=== PATIENT | male | born 1980 | race Caucasian/White ===

== ENCOUNTER 2017-10-03 09:46 | Emergency (ER) | payer BC ==
[~2017-10-03] VITALS: Wt 90.7 kg
[2017-10-03] MEDS ORDERED: LAMOTRIGINE150 MG PO (09:56)
[2017-10-03] MEDS ORDERED: PREDNISONE10 MG PO (10:23)
[2017-10-03] MEDS ORDERED: 'PARAFON FORTE500 M1 PO (10:23)
== END 2017-10-03 12:10 | disposition home or self-care (01) ==
LOC: ED 09:46
DX: M54.5 Low back pain (principal); R03.0 Elevated blood-pressure reading, without diagnosis of hypertension; Z79.899 Other long term (current) drug therapy

== ENCOUNTER 2018-12-26 14:25 | Emergency (ER) | payer OTHER ==
[~2018-12-26] VITALS: Wt 81.6 kg
--- NOTE | ~2018-12-26 | EKG ---
[place], [place] ELECTROCARDIOGRAM REPORT NAME: JERED JIANG UNIT #: [id number] ROOM: DOCTOR: EPIPHANY DRAFT REPORT BIRTHDATE: [birth year] [facility] Test Date: 2018-12-26 Test Time: 17:15:33 Pat Name: JERED JIANG Department: ED Room: 3 Gender: M Supervisor Nuclear Medicine: Marixa Rodarte : 1980 Requested By: KELLY ETIENNE Order Number: [id number] Reading MD: Nick Banerjee MD Measurements Intervals [place] Rate: 55 P: 27 [place]: 153 QRS: 6 QRSD: 98 T: 18 QT: 415 QTc: 397 Interpretive Statements Sinus rhythm Probable left atrial enlargement Electronically Signed On 12-28-2018 7:14:22 PDT by Nick Banerjee MD CM:EKGRPT:ELECTROCARDIOGRAM REPORT 1715 0714 KELLY ETIENNE MD EPIPHAMANDA DRAFT REPORT KELLY ETIENNE MD
--- NOTE | ~2018-12-26 | EKG ---
[place], [place] ELECTROCARDIOGRAM REPORT NAME: JERED JIANG UNIT #: [id number] ROOM: DOCTOR: EPIPHANY DRAFT REPORT BIRTHDATE: [birth year] [facility] Test Date: 2018-12-26 Test Time: 14:27:59 Pat Name: JERED JIANG Department: Room: Gender: M Table Setter: : 1980 Requested By: KELLY ETIENNE Order Number: [id number] Reading MD: Nick Banerjee MD Measurements Intervals [place] Rate: 127 P: 74 [place]: 164 QRS: 67 QRSD: 103 T: 7 QT: 310 QTc: 451 Interpretive Statements Sinus tachycardia Probable left atrial enlargement No previous ECG available for comparison Electronically Signed On 12-28-2018 7:13:57 PDT by Nick Banerjee MD CM:EKGRPT:ELECTROCARDIOGRAM REPORT 1427 0713 KELLY FRANCIS DRAFT REPORT KELLY ETIENNE MD
[~2018-12-26 14:25] MED LIST: 'PARAFON FORTE500 M1 PO; LAMOTRIGINE150 MG PO; PREDNISONE10 MG PO
[2018-12-26 14:51] LABS: BASO % 0.6 % (0.0-1.0); EOS # 0.4 10*3/uL (0.0-0.4); EOS % 5.8 % (1.0-4.0); HEMOGLOBIN 13.9 g/dl (14.0-18.0); LYMPH # 1.7 10*3/uL (1.3-4.4); LYMPH % 24.6 % (27.0-41.0); MEAN CELL VOLUME 88.7 fl (80.0-94.0); MEAN CORPUSCULAR HGB 30.8 pg (27.0-31.0); MEAN CORPUSCULAR HGB CONC 34.8 g/dl (33.0-37.0); MONO # 0.4 10*3/uL (0.1-1.0); MONO % 5.8 % (3.0-9.0); NEUT # 4.4 10*3/uL (2.3-7.9); NEUT % 63.1 % (47.0-73.0); PLATELET COUNT AUTOMATED 221 10*3/uL (130-400); RED BLOOD COUNT 4.51 10*6/uL (4.50-5.90); RED CELL DISTRI WIDTH 11.8 % (0-14.5)
[2018-12-26 15:06] LABS: ACT PARTIAL THROMBO TIME 26.3 SECONDS (20.8-31.5); INTERNATIONAL NORM RATIO 1.1 (2.0-3.5)
[2018-12-26 15:18] LABS: ALBUMIN 3.8 gm/dl (3.1-4.5); ALKALINE PHOSPHATASE 84 U/L (45-117); BUN 19 mg/dl (7-24); CHLORIDE 105 mmol/L (98-107); CREATININE 1.08 mg/dL (0.70-1.30); POTASSIUM 4.2 mmol/L (3.5-5.1); SGOT/AST 12 IU/L (3-35); SGPT/ALT 19 U/L (12-78); SODIUM 140 mmol/L (136-145); TOTAL PROTEIN 7.3 gm/dL (6.4-8.2)
[2018-12-26 15:23] LABS: TROPONIN I < 0.015 ng/ml (<0.045)
== END 2018-12-26 18:31 | disposition home or self-care (01) ==
LOC: ED 14:25
PROVIDERS: Emergency Medicine
DX: F41.0 Panic disorder [episodic paroxysmal anxiety] (principal); I10 Essential (primary) hypertension; Z90.49 Acquired absence of other specified parts of digestive tract

== ENCOUNTER 2022-03-17 22:45 | Emergency (ER) | payer SELFPAY | END 2022-03-17 23:46 | disposition home or self-care (01) | LOC: ED 22:45 | DX: S91.114A Laceration without foreign body of right lesser toe(s) without damage to nail, initial encounter (principal); Z90.49 Acquired absence of other specified parts of digestive tract; Z90.89 Acquired absence of other organs; X58.XXXA Exposure to other specified factors, initial encounter; Y93.89 Activity, other specified; Y92.89 Other specified places as the place of occurrence of the external cause; Y99.8 Other external cause status ==